=== PATIENT | male | born 1955 | race Caucasian/White ===

== ENCOUNTER → 2016-10-01 | Outpatient (CLI) | payer BC ==
[2014-12-26 14:16] VITALS: BP 123/81
[~2016-10-01] MED LIST: ALEVE PO; LORA10TA3 PO; OMEP20CA9 PO; PEPTO-BISMOL PO
--- NOTE | 2016-10-01 16:07 | RAD ---
Left groin ultrasound, 10/01/2016: History: Groin pain, mass The left groin was carefully scanned. In the upright position with Valsalva there was protrusion of a heterogeneous 2.8 x 3.8 x 2.5 cm mass into the soft tissues. The appearance is that of a hernia. No definite peristalsis was seen within this structure. CT scanning may be useful for further evaluation, if clinically indicated.
== END | disposition home or self-care (01) ==
LOC: US 15:07
PROVIDERS: ATTEND Surgery
DX: R10.30 Lower abdominal pain, unspecified (principal)
CPT/HCPCS: 76881

== ENCOUNTER 2016-11-26 06:26 | Day surgery (SDC) | payer BC ==
[~2016-11-26] VITALS: Ht 167.6 cm; Wt 69.4 kg
[~2016-11-26 06:26] MED LIST changes: +CEFAZOLIN 2GM PREMIX 50 ML IV PRN; +CYAN10005 PO
[2016-11-26] MEDS ORDERED: ONDANSETRON PF 4 MG/2 ML VIAL. IV PRN (07:00)
[2016-11-26] MEDS ORDERED: PROCHLORPERAZINE 10 MG/2 ML VIAL. IV PRN (07:00)
[2016-11-26] MEDS ORDERED: MORPHINE SULFATE 2 MG/ML DISP.SYRIN. IV PRN (07:00)
[2016-11-26] MEDS ORDERED: HYDROMORPHONE 2 MG/ML VIAL. IV PRN (07:00)
[2016-11-26] MEDS ORDERED: FENTANYL PF 100 MCG/2 ML VIAL. IV PRN (07:00)
[2016-11-26] MEDS ORDERED: IV RINGERS,LACTATED 1000ML 1,000 ML IV SCH ×2 (07:00→07:30)
[2016-11-26] MEDS ORDERED: LIDOCAINE 1% 1 ML SYRINGE. ID PRN (07:00)
[2016-11-26] MEDS ORDERED: BUPIVACAINE-EPI 0.25%-1:200000 MPF 30 ML VIAL. ONE (07:17)
[2016-11-26] MEDS ORDERED: ACETAMINOPHEN INTRAVENOUS 100 ML IV ONE ×2 (07:27→07:45)
[2016-11-26] MEDS ORDERED: DESFLURANE > 120 MINUTES IH ONE (07:37)
[2016-11-26] MEDS ORDERED: ROCURONIUM 50 MG/5 ML VIAL. ONE ×2 (07:38→08:38)
[2016-11-26] MEDS ORDERED: DEXAMETHASONE SOD PHOS 20 MG/5 ML VIAL. ONE (07:38)
[2016-11-26] MEDS ORDERED: LIDOCAINE 2% 100 MG/5 ML DISP.SYRIN. ONE (07:38)
[2016-11-26] MEDS ORDERED: GLYCOPYRROLATE 1 MG/5 ML VIAL. ONE (07:38)
[2016-11-26] MEDS ORDERED: MIDAZOLAM HCL 2 MG/2 ML VIAL. ONE (07:38)
[2016-11-26] MEDS ORDERED: ONDANSETRON PF 4 MG/2 ML VIAL. ONE (07:38)
[2016-11-26] MEDS ORDERED: FENTANYL PF 100 MCG/2 ML VIAL. ONE ×2 (07:38→08:13)
[2016-11-26] MEDS ORDERED: NEOSTIGMINE METHYLSULFATE 5 MG/5 ML SYRINGE. ONE (07:38)
[2016-11-26] MEDS ORDERED: PROPOFOL 20 ML IV ONE (07:38)
--- NOTE | 2016-11-26 07:52 | PDOC1 ---
History and Physical Date of Admission Date of Admission DATE: 11/26/16 TIME: 07:48 Identification/Chief Complaint Chief Complaint left groin pain Source Source: Patient History of Present Illness History of Present Illness 60 yo male with left groin pain after LIH repair couple years ago. Pain developed after a bout of bronchitis and chronic severe cough. U/S of the left groin shows small inguinal hernia Past Medical History GI: GERD Hepatobiliary: Hep A/B/C Past Surgical History Past Surgical History: Hernia Repair, Other (liver bx colonoscopy) Family History Family History: No Significant Social History Smoke: <1 pack per day ALCOHOL: occassional Drugs: None Current Medications Current Medications Current Medications Ondansetron HCl (Zofran) 4 mg PRN Q6HRS PRN IV Nausea; Start 11/26/16 at 07:00 ; Stop 11/27/16 at 06:59 Fentanyl Citrate (Fentanyl 2ml Vial) 25 mcg PRN Q5MIN PRN IV MILD PAIN; Start 11/26/16 at 07:00; Stop 11/27/16 at 06:59 Fentanyl Citrate (Fentanyl 2ml Vial) 50 mcg PRN Q5MIN PRN IV MODERATE PAIN; Start 11/26/16 at 07:00; Stop 11/27/16 at 06:59 Morphine Sulfate 1 mg 1 mg PRN Q10MIN PRN IV SEVERE PAIN; Start 11/26/16 at 07: 00; Stop 11/27/16 at 06:59 Lactated Ringer's (Iv Lactated Ringers) 1,000 ml @ 0 mls/hr Q0M IV ; Start at 07:00; Stop 11/26/16 at 18:59 Lidocaine HCl 2 ml 1X PRN PRN ID IV START; Start 11/26/16 at 07:00; Stop at 06:59 Hydromorphone HCl (Dilaudid) 0.5 mg PRN Q10MIN PRN IV SEVERE PAIN, Second choice; Start 11/26/16 at 07:00; Stop 11/27/16 at 06:59 Prochlorperazine Edisylate 5 mg 5 mg PACU PRN PRN IV NAUSEA; Start 11/26/16 at 07:00; Stop 11/27/16 at 06:59 Cefazolin Sodium/ Dextrose (Ancef 2gm Premix) 50 ml @ 100 mls/hr 1X PREOP PRN IV PRIOR TO PROCEDURE; Start 11/26/16 at 06:00; Stop 11/26/16 at 18:00 Bupivacaine HCl/ Epinephrine Bitart 30 ml 30 ml STK-MED ONCE .ROUTE ; Start at 07:17; Stop 11/26/16 at 07:18; Status DC Lactated Ringer's 1,000 ml @ 75 mls/hr [id number] IV Last administered on t 07:25; Start 11/26/16 at 07:30 Acetaminophen (Ofirmev) 100 ml @ As Directed STK-MED ONCE IV ; Start 11/26/16 at 07:27; Stop 11/26/16 at 07:28; Status DC Desflurane (Suprane) 90 ml STK-MED ONCE IH ; Start 11/26/16 at 07:37; Stop 11/26 at 07:38; Status DC Midazolam HCl (Versed) 2 mg STK-MED ONCE .ROUTE ; Start 11/26/16 at 07:38; Stop 11/26/16 at 07:39; Status DC Fentanyl Citrate (Fentanyl 2ml Vial) 100 mcg STK-MED ONCE .ROUTE ; Start at 07:38; Stop 11/26/16 at 07:39; Status DC Glycopyrrolate (Robinul) 1 mg STK-MED ONCE .ROUTE ; Start 11/26/16 at 07:38; Stop 11/26/16 at 07:39; Status DC Rocuronium Arco (Zemuron) 50 mg STK-MED ONCE .ROUTE ; Start 11/26/16 at 07:38 ; Stop 11/26/16 at 07:39; Status DC Neostigmine Methylsulfate 5 mg 5 mg STK-MED ONCE .ROUTE ; Start 11/26/16 at 07: 38; Stop 11/26/16 at 07:39; Status DC Propofol (Diprivan) 20 ml @ As Directed STK-MED ONCE IV ; Start 11/26/16 at 07: 38; Stop 11/26/16 at 07:39; Status DC Lidocaine HCl 100 mg STK-MED ONCE .ROUTE ; Start 11/26/16 at 07:38; Stop at 07:39; Status DC Dexamethasone Sodium Phosphate (Decadron) 20 mg STK-MED ONCE .ROUTE ; Start at 07:38; Stop 11/26/16 at 07:39; Status DC Ondansetron HCl 4 mg 4 mg STK-MED ONCE .ROUTE ; Start 11/26/16 at 07:38; Stop at 07:39; Status DC Acetaminophen (Ofirmev) 100 ml @ 400 mls/hr 1X ONCE IV ; Start 11/26/16 at 07: 45; Stop 11/26/16 at 07:59 Active Scripts Active Reported Vitamin B-12 (Cyanocobalamin (Vitamin B-12)) 1,000 Mcg Tablet 1,000 Mcg PO DAILY Loratadine 10 Mg Tablet 1 Tab PO DAILY Omeprazole 20 Mg Capsule.dr 1 Cap PO DAILY Allergies Allergies: Coded Allergies: No Known Drug Allergies (Unverified , 11/23/16) ROS Genitourinary: YES Pain Physical Exam General: Alert, Oriented X3, Cooperative, No acute distress HEENT: Atraumatic, PERRLA, EOMI Lungs: Clear to auscultation, Normal air movement Heart: RRR, no gallops, no murmurs Abdomen: Normal bowel sounds, Soft, No tenderness Male Genitals Exam: hernia, inguinal tenderness (left) Rectal Exam: not examined Extremities: No clubbing, No cyanosis, No edema Skin: No rashes, No significant lesion Neuro: Normal gait, Normal speech VTE Prophylaxis Ordered VTE Prophylaxis Devices: Yes VTE Pharmacological Prophylaxi: Contraindicated Assessment/Plan Assessment/Plan Recurrent LIH plan repair DEBORAH PACE MD Nov 26, 2016 7:52 am
[2016-11-26] MEDS ORDERED: KETOROLAC 30 MG/ML SYRINGE FOR OR. INJ ONE (08:01)
[2016-11-26] MEDS ORDERED: PHENYLEPHRINE in 0.9% NACL PF 1 MG/10 ML DISP.SYRIN. IV ONE (08:03)
--- NOTE | 2016-11-26 08:54 | PDOC ---
BRIEF OPERATIVE NOTE Date: Nov 26, 2016 Pre-Op Diagnosis Recurrent LIH Post-Op Diagnosis Same Procedure Performed Robotic assisted L/S LIH repair with Mesh Surgeon Robson Anesthesia Type: General Blood Loss 10ml Specimens Obtained None Findings as above Complications None DEBORAH PACE MD Nov 26, 2016 08:54
--- NOTE | 2016-11-26 08:55 | DISCH ---
DISCHARGE INSTRUCTIONS Condition on Discharge Condition on Discharge: Stable Activity After Discharge Activity Instructions for Disc: Avoid exertion Other activity instructions: No lifting>20lbs for 2 weeks Lifting Instructions after Dis: No heavy lifting Diet after Discharge Diet after Discharge: Regular Wound Incision Care Other wound/incision instructi: May shower in 24 hours Contacting the after DC Call your doctor for: If your condition worsens Follow-Up Follow up with: Dr Pace in 2 weeks DEBORAH PACE MD Nov 26, 2016 08:55
[2016-11-26] MEDS ORDERED: SUGAMMADEX SODIUM 200 MG/2 ML VIAL. IVP ONE (09:13)
--- NOTE | 2016-11-26 09:24 | OP ---
DATE OF SURGERY: 11/26/2016 PREOPERATIVE DIAGNOSIS: Recurrent left inguinal hernia. POSTOPERATIVE DIAGNOSIS: Recurrent left inguinal hernia. PROCEDURE: Robotic-assisted laparoscopic left inguinal hernia repair with mesh. SURGEON: Jay Jay Pace M.D. INDICATIONS: The patient is a 60-year-old gentleman who had a laparoscopic left inguinal hernia repair about a year and a half ago. In that interim year and a half he developed severe bronchitis with chronic cough and then developed left inguinal hernia pain again. Ultrasound showed recurrent left inguinal hernia. PROCEDURE: Robotic-assisted laparoscopic left inguinal hernia repair with mesh was explained to the patient in detail. Risks and benefits were also discussed including bleeding, infection, injury to intra-abdominal contents, and possibility of sustaining further open operations. Alternatives of this procedure were also discussed with the patient who seemed to understand and gave verbal and written consent to have the procedure performed. DESCRIPTION OF PROCEDURE: The patient was taken to the operating room and placed in the supine position. General anesthesia was initiated. Once the patient was asleep and intubated, he was placed in a low lithotomy and his abdomen was prepped and draped in usual sterile fashion using ChloraPrep. An area just above the umbilicus was injected with 0.25% Marcaine with epinephrine. Incision was made with an 11 blade scalpel and a Veress needle was placed within the abdomen. Pneumoperitoneum was achieved. Once this was complete, an 8-mm port was placed and a 30-degree da Lashanda camera was placed within the abdomen. The abdomen was inspected. No other abnormalities were noted. It was noted that he did have a hernia in the left inguinal area. At this point two more 8-mm ports were placed under direct visualization, one in the left mid abdomen and one in the right mid abdomen. The da Lashanda robot was then brought in between the patient's legs and docked to the ports. At this point a grasper and EndoShears scissors were placed and the surgeon went to the robotic console. Using the grasper and EndoShears scissors, the peritoneum was incised and window propagated inferiorly reducing the hernia sac and its contents. At this point the ProGrip mesh was placed over the hernia defect and secured into place by the ProGrip. The peritoneum was then closed over the mesh with a running V-Loc suture. At this point the da Lashanda robot was undocked from the patient. All ports were removed. The pneumoperitoneum was reduced and the skin incisions were closed with 4-0 Monocryl subcuticular stitches. Dressed with Mastisol, Steri-Strips, and island dressings. The patient was awakened and extubated in the operating room, taken to recovery in stable condition. All sponge and instrument counts listed as correct. Estimated blood loss 10 mL. JAY JAY PACE MD DR: ELLIOT/sunshine JOB#: [id number] / [id number] BRETT Donohue MD
[2016-11-26] MEDS: FENTANYL PF 100 MCG/2 ML VIAL. IV PRN ×2 (09:38→09:52)
[2016-11-26] MEDS ORDERED: OXYC-323 PO (09:50)
[2016-11-26] MEDS ORDERED: OXYCODONE/APAP 5/325 TABLET. PO PRN (10:00)
[2016-11-26 10:18] VITALS: BP 103/65
== END 2016-11-26 10:45 | disposition home or self-care (01) ==
LOC: SURG 06:26
PROVIDERS: ATTEND Surgery
DX: K40.91 Unilateral inguinal hernia, without obstruction or gangrene, recurrent (principal); E66.9 Obesity, unspecified; K21.9 Gastro-esophageal reflux disease without esophagitis; Z72.89 Other problems related to lifestyle
CPT/HCPCS: 49651; C1781; J0131; J0690; J1100; J1885; J2250; J2370; J2405; J2704; J2710; J3010; J3490; S2900

== ENCOUNTER → 2019-06-11 | Outpatient (CLI) | payer BC, OTHER ==
[~2019-06-11] MED LIST changes: -CEFAZOLIN 2GM PREMIX 50 ML IV PRN; +CYAN-25 PO; -CYAN10005 PO; +OMEP20CA10 PO; -OMEP20CA9 PO; +OXYC1TAB15 PO
--- NOTE | 2019-06-11 09:58 | KCIC ---
ABDOMEN COMPLETE: 06/11/2019 8:00 AM Indication: 63 years old Male. Liver fibrosis. Comparison: None. TECHNIQUE: Sonographic evaluation of the abdomen is performed utilizing grayscale and color Doppler. FINDINGS: Liver: There is coarsened echotexture of the hepatic parenchyma which may be associated with a micronodular appearance of cirrhosis. There is hepatopedal flow within the portal venous system. Right hepatic lobe measures 17.3 cm. Biliary system: CBD measures 4 mm. There is no intrahepatic or extrahepatic biliary dilatation. Gallbladder: No stones, wall thickening or pericholecystic fluid. . Sonographic Eng sign: Negative Pancreas: Visualized head and uncinate process are unremarkable. Body and tail are not visualized. Spleen: 10.1 cm. Calcifications within the spleen may represent sequela of prior granulomatous disease. Right kidney: 12.6 x 5.6 x 5.2 cm. No hydronephrosis. Normal echotexture without focal mass or renal calculus. Left kidney: 11.8 x 5.6 x 5.0 cm. No hydronephrosis. Normal echotexture without focal mass or renal calculus. Abdominal aorta and IVC: Visualized portions unremarkable. Proximal aorta measures 2.47. Mid aorta measures 1.7 cm. Distal aorta measures 1.6 cm. Free fluid:None. IMPRESSION: Coarsened echotexture of the hepatic parenchyma may be associated with macronodular appearance of cirrhosis. Further evaluation with MRI of the abdomen is recommended as findings Limited evaluation for underlying hepatic masses. Correlate with hepatobiliary enzymes. Calcifications within the spleen may represent sequela prior granulomatous exposure. Electronically signed by: Laura Oliveira MD (06/11/2019 9:55 AM) [facility]
== END | disposition home or self-care (01) ==
LOC: KCIC US 08:02
PROVIDERS: ATTEND Internal Medicine
DX: D73.89 Other diseases of spleen (principal); K74.0 Hepatic fibrosis
CPT/HCPCS: 76700